=== PATIENT | female | born 1980 | race African-American/Black ===

== ENCOUNTER 2018-03-17 15:28 | Emergency (ER) | payer MEDICAID ==
[~2018-03-17] VITALS: Ht 162.6 cm; Wt 90.0 kg
[2018-03-17 15:35] VITALS: BP 177/79; PULSE 101; RESP 16; TEMP 97.5; O2SAT 100
[2018-03-17] MEDS ORDERED: IBUPROFEN 800 MG TAB PO ONE (16:15)
[2018-03-17] MEDS ORDERED: VENTAER INH (16:19)
[2018-03-17] MEDS ORDERED: IBUP1TAB7 PO (16:27)
--- NOTE | 2018-03-17 16:27 | PD ---
HPI Chief Complaint: Pain: Acute or Chronic Time Seen by Provider: 15:56 Travel History International Travel<30 days: No Contact w/Intl Traveler<30days: No Traveled to known affect area: No History of Present Illness HPI 37-year-old female presents to the emergency department with complaint of left knee pain after she stood up to get out of her car and her knee "buckled" about 1 hour ago. Denies traumatic injury. She has been ambulatory on the affected extremity. Denies paresthesias, loss of sensation, decreased range of motion, decreased strength to the affected extremity. Denies fever, vomiting. Has not taken any medication to alleviate her symptoms. Has ice applied to her knee with good relief of symptoms. Rates pain 8/10. Pain is anterior. Describes as throbbing. Primary care provider is Dr. Avery. Allergies to morphine. History of asthma. Has no other medical complaints. No other modifying factors or associated signs and symptoms. PFSH Past Medical History Asthma: Yes Diminished Hearing: No Respiratory: Yes Tetanus Vaccination: Unknown ?: Not Past Surgical History Cholecystectomy: Yes Gynecologic Surgery: Yes (FIBROID REMOVED) Hysterectomy: Yes Social History Alcohol Use: Yes Tobacco Use: No Substance Use: No Allergies-Medications (Allergen,Severity, Reaction): Coded Allergies: morphine (Verified Allergy, Intermediate, 03/17/18) VOMITING Reported Meds & Prescriptions Reported Meds & Active Scripts Active Ibuprofen 800 Mg Tab 800 Mg PO Q6HR PRN Reported Ventolin Hfa 18 GM Inh (Albuterol Sulfate) 90 Mcg/Act Aer 1 Puff INH Q4H PRN Review of Systems Except as stated in HPI: all other systems reviewed are Neg Physical Exam Narrative GENERAL: Well-nourished, well-developed black female patient, in no acute distress; afebrile, nontoxic-appearing SKIN: Warm and dry. HEAD: Atraumatic. Normocephalic. EYES: Pupils equal and round. No scleral icterus. No injection or drainage. ENT: Mucosa pink and moist. Airway patent. NECK: Trachea midline. CARDIOVASCULAR: Regular rate. RESPIRATORY: No accessory muscle use. GASTROINTESTINAL: Rounded. MUSCULOSKELETAL: Left knee nonedematous, nonerythematous, and without ecchymosis ; full range of motion and flexion to 90; point tenderness to the anterior aspect; joint stable with negative drawer test; no obvious deformity. Left lower extremity is supple and non-tense with 2+ pedal pulse and sensory intact and without erythema or edema. NEUROLOGICAL: Awake and alert. Oriented 3. No obvious cranial nerve deficits. Motor grossly within normal limits. Normal speech. PSYCHIATRIC: Appropriate mood and affect; insight and judgment normal. Data Data Last Documented VS Vital Signs Date Time Temp Pulse Resp B/P (MAP) Pulse Ox O2 Delivery O2 Flow Rate FiO2 03/17/18 15:35 97.5 101 16 177/79 (111) 100 Orders Orders Ibuprofen (Motrin) (03/17/18 16:15) Knee, Complete (4vws) (03/17/18 16:04) Ice/Cold Pack (03/17/18 16:04) Crutches (03/17/18 16:04) MDM Medical Decision Making Medical Screen Exam Complete: Yes Emergency Medical Condition: Yes Medical Record Reviewed: Yes Differential Diagnosis Knee strain, ACL tear, meniscus tear, fracture, dislocation Narrative Course 37-year-old female with left knee pain after it buckled. Ibuprofen, left knee x -ray ordered. 1656: Left knee x-ray concluded: Knee X-Ray 03/17/18 1604 Signed Impressions: CONCLUSION: No acute left knee abnormality is identified. Patient provided a copy of the x-ray report. Cooper bandage and crutches provided for support. Instructed patient to follow-up outpatient if her symptoms persist greater than 7-10 days. Instructed patient to follow up with primary care provider. Patient verbalizes understanding and agreement with treatment plan. Patient is medically cleared and stable for discharge. Discussed reasons to return to the emergency department. Patient agrees with treatment plan. The patients vital signs are stable and the patient is stable for outpatient follow-up and treatment. Patient discharged home, stable and in no acute distress. Diagnosis Primary Impression: Left knee injury Qualified Codes: S89.92XA - Unspecified injury of left lower leg, initial encounter Referrals: Orthopaedic Surgeon Primary Care Physician Patient Instructions: Crutch Instructions (ED), General Instructions, Knee Sprain (ED) Additional Instructions: Tylenol or ibuprofen as needed and as directed to reduce pain and inflammation Rest, ice, compress, and elevate extremity to decrease pain and inflammation Knee brace for support Crutches for support Avoid aggravating activity; increase activity as tolerated Follow-up with primary care provider Follow-up with orthopedics Return to the emergency department immediately with worsening symptoms Med/Other Pt SpecificInfo: Prescription(s) given Scripts Ibuprofen (Ibuprofen) 800 Mg Tab 800 MG PO Q6HR Y for PAIN, #20 TAB 0 Refills Prov: Marie Epperson 03/17/18 Disposition: 01 DISCHARGE HOME Condition: Stable Marie Epperson Mar 17, 2018 16:27
--- NOTE | 2018-03-17 16:45 | RADRPT ---
EXAM DATE: 03/17/2018 4:38 PM EDT AGE/SEX: 37 years / Female INDICATIONS: Left knee pain after fall. CLINICAL DATA: This is the patient's initial encounter. Patient reports that signs and symptoms have been present for 1 day and indicates a pain score of 8/10. MEDICAL/SURGICAL HISTORY: None. None. COMPARISON: No prior exams available for comparison. FINDINGS: Four views of the left knee demonstrate no fracture or dislocation. Mineralization is within normal l imits. There is no significant arthropathy. No joint effusion is seen. No soft tissue abnormality or radiopaque foreign body is identified. CONCLUSION: No acute left knee abnormality is identified. Electronically signed by: Prakash Bradford MD 03/17/2018 4:44 PM EDT
== END 2018-03-17 17:22 | disposition home or self-care (01) ==
LOC: NEPK 15:28
DX: S89.92XA Unspecified injury of left lower leg, initial encounter (principal); M25.562 Pain in left knee; X58.XXXA Exposure to other specified factors, initial encounter; J45.909 Unspecified asthma, uncomplicated; Z88.5 Allergy status to narcotic agent; Z79.899 Other long term (current) drug therapy
CPT/HCPCS: 73564; 99283; E0113